=== PATIENT | female | born 1975 | race African-American/Black ===

== ENCOUNTER 2016-10-08 03:43 | Emergency (ER) | payer OTHER ==
[~2016-10-08 03:43] MED LIST: BENTYL10 MG PO
== END 2016-10-08 03:45 | disposition home or self-care (01) ==
LOC: CED 03:43
DX: K02.9 Dental caries, unspecified (principal); E11.9 Type 2 diabetes mellitus without complications; I10 Essential (primary) hypertension; I25.2 Old myocardial infarction; Z88.1 Allergy status to other antibiotic agents; Z91.041 Radiographic dye allergy status
CPT/HCPCS: 99283